=== PATIENT | female | born 1980 | race Caucasian/White ===

== ENCOUNTER 2025-02-17 06:05 | Day surgery (SDC) | payer MEDICAID, SELFPAY ==
[2025-02-17] VITALS (11 sets, daily range): BP systolic 103–137; BP diastolic 72–103; PULSE 92–103; RESP 16–18; TEMP 36.1–37.2; O2SAT 95–100; BMI 47.9
--- NOTE | 2025-02-17 06:44 | PRE.ANES_ITS ---
ASA Classification* ASA Classification ASA Classification: 2 Assessment & Plan Anesthesia* Anesthesia Assessment Anesthesia Assessment: Discussed sedation and/or anesthesia options, risks, benefits, and alternatives with patient/parents/legal guardian/POA. Questions invited. The patient/parents/legal guardian/POA seems to understand and agrees to proceed with anesthesia plan. Reviewed the physical assessment, medical history, allergy history and patient home medications list prior to surgery/procedure/anesthetic and documented any changes. Performed airway and anesthesia risk assessments. Anesthesia Type Anesthesia Type: General Anesthesia Focused Assessment* Temperature: 98.4 F Pulse Rate: 103 Blood Pressure: 137/103 Respiratory Rate: 16 Pulse Ox: 100 Airway Assessment Mouth opens: >3 cm Mallampati Score: II Labs Anesthesia Preop lab: CBC CHEMISTRY COAG Pre-Assessment Diagnosis/Proposed Procedure Planned Operative Procedure(s): (L) Excision Ganglionic Cyst, Ankle. Exploration/Repair of Peroneal Tendon, Ankle. Anesthesia History Anesthesia History - risk adjustment specialist: Anesthesia History - risk adjustment specialist Hx Hospitalization No 02/07/25 13:08 Any Problems With Anesthesia No 02/07/25 13:08 Cholinesterase deficiency No 02/07/25 13:08 You/Your Family Experience No 02/07/25 13:08 fever (hyperthermia) with Relationship Recent Exposure to Contagious No 02/17/25 06:30 Disease Does patient have nerve No 02/07/25 13:08 stimulator Patient instructed to have device shut off --Does patient have Pacemaker No 02/17/25 06:30 or ICD? When Was Last Pacemaker Check QUESTION #4 FULL TEXT: You/Your Family Experience fever (hyperthermia) with Anesthesia Last Oral Intake Last Oral intake: Last Oral Intake NPO since 01:30 02/17/25 06:30 Meds taken in AM with sips of No 02/17/25 06:30 water? Meds patient instructed to take am of surgery PONV PONV - risk adjustment specialist: PONV - risk adjustment specialist Female Yes 02/07/25 13:08 HX of Motion Sickness No 02/07/25 13:08 HX of N/V After Surgery No 02/07/25 13:08 Non-Smoker Yes 02/07/25 13:08 Duration of Surgery greater No 02/07/25 13:08 than 60 minutes Number of Risk Factors 2 02/07/25 13:08 PONV Score Moderate Risk 02/07/25 13:08 Height & Weight Height & Weight: Anesthesia: Height & Weight Height 5 ft 4 in 02/17/25 06:30 Weight: 126.6 kg 02/17/25 06:30 Body Mass Index (BMI) 47.9 02/17/25 06:30 Respiratory Assessment Respiratory Assessment - risk adjustment specialist: Respiratory Tract Infection Hx - risk adjustment specialist Hx Respiratory Tract Infection No 02/07/25 13:08 STOP Sleep Apnea STOP Sleep Apnea - risk adjustment specialist: STOP Sleep Apnea - risk adjustment specialist Hx Hypertension No 02/07/25 13:08 Hx Sleep Apnea No 02/07/25 13:08 CPAP BIPAP Do you snore loudly (louder No 02/07/25 13:08 than talking or can be heard Do you often feel tired/ No 02/07/25 13:08 fatigued/ sleepy during daytime? Has anyone observed you stop No 02/07/25 13:08 breathing during sleep? STOP Results Negative 02/07/25 13:08 QUESTION #5 FULL TEXT : Do you snore loudly (louder than talking or can be heard through closed doors)? Tobacco Use History Tobacco Use History - risk adjustment specialist: Tobacco Use History - risk adjustment specialist Tobacco Use Smoking Status Former smoker 02/07/25 13:08 Hx Tobacco Use No 02/07/25 13:08 Years Smoking 20 02/07/25 13:08 Packs Smoked per Day Smoking Cessation Date was Yes - quit smoking within 15 02/07/25 13:08 within the last 15 years years Hx Smoking Cessation Date Hx Smoking Cessation No 02/07/25 13:08 Counseling Hematologic Medial History Hematologic Hx - risk adjustment specialist: Hematologic Medical Hx - smoke chaser Hx of Blood Transfusion Yes 02/07/25 13:08 Hx of Transfusion in last 3 No 02/07/25 13:08 Months Date of Last Transfusion (if within last 3 months) Ever experience any problems No 02/07/25 13:08 with transfusion(s)? Specify any problems Hx of Preganancy in last 3 No 02/07/25 13:08 Months Nurse Filling Out Transfusion JZOLLINGE 02/07/25 13:08 & Questions: Date: 02/07/25 02/07/25 13:08 Time: 13:10 02/07/25 13:08 Patient unable to answer at this time (ie. confused, unrespo /Reproduction History /Reproductive History - risk adjustment specialist: /Reproductive Hx- risk adjustment specialist Hx Now No 02/07/25 13:08 Gestational Age (in weeks): EDC: Hx Hx Para Hx Section SAB No 02/07/25 13:08 Active Medications Active Medications: Current Medications Generic Name Dose Route Start Last Admin Trade Name Freq PRN Reason Stop Dose Admin Lactated Ringer's 1,000 mls @ 15 mls/hr 02/17/25 06:30 IV .Q48H ANGEL LUIS PFSH Medical History Alcohol use Dietary restriction History of hiatal hernia Heartburn Former smoker Smoker Home Medications ?Medication ?Instructions ?Recorded ?Last Taken ?Type NK 02/07/25 Unknown History Allergy/AdvReac Type Severity Reaction Status Date / Time No Known Allergies Allergy Verified 02/17/25 06:29 Surgical History Hx of hysterectomy Hx of cholecystectomy History of ankle surgery Hx of colonoscopy Hx of gastric bypass Social History Smoking Status: Former smoker Review of Systems (Anesthesia) ROS Narrative System reviewed and no additional complaints, except as documented.
[2025-02-17] MEDS: Lactated Ringers 1,000 ML 15 ML IV (06:49)
--- NOTE | 2025-02-17 07:30 | SYN_PTH ---
PATIENT: BROOKS CARRILOL LOC: [facility] – [place] U#:[id number] AGE/SX: 44/F ROOM: RE02/17/[address]: Dr. Alo Pradhan DPM : 1980 BED: DIS: 02/17/2025 SPEC #: [id number] RECD: 02/17/25 10:24 STATUS: KAYLA JEROME #: [id number] KAREL: 02/17/25 07:[address]: Alo Pradhan DEPT: SURGICAL PATHOLOGY RECD BY: Chaka Garcia Tissues: A - Synovial tissue of joint, NOS Procedures: Surgery Specimen Level IV HEADER OPERATION: Repair peroneal longus tendon, excision hypertrophy synovium PRE-OP DIAGNOSIS: Ganglion cyst TISSUE SUBMITTED: A- Synovial hypertrophy MICROSCOPIC DIAGNOSIS A. Synovium, excision: * Benign dense fibrocollagenous tissue MICROSCOPIC DESCRIPTION Slides are reviewed. GROSS DESCRIPTION A. Received in formalin labeled with the patient's name and date of . Designated as synovial hypertrophy is a 1.0 x 0.9 x 0.6 cm alva and rubbery tissue fragment. Sectioning reveals rubbery and fibrotic cut surfaces. Entirely submitted in 1 cassette. OH 02/17/2025 CPT:64050
[2025-02-17] MEDS: Bupiv/Epi 0.25% 30 ML Vial (07:51)
--- NOTE | 2025-02-17 08:54 | OP.PCM_ITS ---
Operative Report (Standard) Operative Information Date of Procedure: 02/17/25 Pre-Operative Diagnosis: ganglionic cyst/peroneal tendonopathy left Post-Operative Diagnosis: synovial hypertrophy/peroneus longus complete rupture with retraction, left Surgery/Procedure Performed: excision synovial hypertrophy/repair/grat peronesul longus tendon, left pilot safety inspector: No Type of Anesthesia: General RN Documented Start/Stop Times: Operation Date: 02/17/25 07:30 Case Time Into Pre-Op 02/17/25 06:21 Out of Pre-Op 02/17/25 07:27 Anesthesia Start 02/17/25 07:30 Into Room 02/17/25 07:30 Procedure Start 02/17/25 07:53 Procedure End 02/17/25 08:36 Anesthesia End 02/17/25 08:44 Out of Room 02/17/25 08:44 Procedure Start Time: 07:53 Procedure Stop Time: 08:36 Select all DRAINS/GRAFTS/IMPLANTS that apply: None Estimated Blood Loss: 5ml Specimen collected: Yes Description of specimen(s) removed: fibrous inflammatory tissue around tendon Description of surgery: pt placed on table in supine position, slight lateral with table tilted and legs protected and body bolstered safely. thigh tourniquet. elevated leg to exsanguinate. tourniquet inflated to 300mm/hg. foot prepped and draped in normal sterile manner. linear incision made over previous incisional scar. excpeted to see ganglion but instead ran into a lot of synovial hypertrophic tissue. fibrofatty and adhesive with lots of fiberwire. the tendons were difficult to dissect as they were basically contiguous with the peroneal tendon sheath and retinaculum. the peroneus brevis was isolate first and noted to be intact with fiberwire running repair. the tendon was diminutive but intact and scarred down to all surrounding tissue, it was free from any restrictive scar. the distal stum of the peroneus longus was identified just proximal to its turn under the cuboid. it was hypertrophic/thick with fiberwire present. may have previously been tenodesed to brevis. the proximal part of the tendon was noted about 4 cm above the retromalleolar groove and also noted to be thick and hypertrophic with fiberwire suture present. it was significantly intertwined with the surround hypertrophic tendon sheath and brevis tendon. It was freed from all surrounding adhesions. the scar/hypertophy was excised along the tendon sheath and retinaculum creating something that could be used to close over the tendons. the peroneus longus tendon parts were about 6 cm apart and could be closed to within about 2.5 cm by pulling the proximal portion down. the proximal portions thickness allowed a longitudinal centerline incision to be made and rotated/flapped down to cover the gap. 3.0 vicryl was used to repair the tendon end to end and side to side. the repair was solid and free to move independently of brevis and surrounding tissue. the retinaculum and sheath were repaired with 3.0 vicryl. the skin closed with 3.0nylon. DSD with posterior splint. tourn deflated, normal perfusion with controlled bleeding. Surgical Findings: peroneus longus tendon rupture with retraction/heavy synovial hypertrophy and scarring/adhesions Complications Complications: No Admit VTE Documentation VTE Mechan Device Prophylaxis: SCD's VTE Pharm Prophylaxis ordered?: No Reason prophylaxis not ordered: Treatment Not Indicated
--- NOTE | 2025-02-17 15:06 | PCM.POST.ANE ---
Anesthesia: Postop Eval I Current Vital Signs Temperature: 97 F Pulse Rate: 92 Blood Pressure: 105/86 Respiratory Rate: 18 Pulse Ox: 98 Oxygen Delivery Method: Room Air Assessment Airway patent: Yes Spontaneous unlabored respirations: Yes nausea: No Vomiting: No Anesthesia Complication: No Fluid Hydration Crystalloid volume administer (ml): 400 Total IV fluid infused: 400 Progress Note Anesthesia document: Postop Eval 1 completed: Yes
--- NOTE | 2025-02-17 15:11 | PCM.POSTANE2 ---
Anesthesia Postop Eval I Sum Postop Eval Completion status Anesthesia document: Postop Eval 1 completed: Yes Anesthesia Postop Eval I Summary Anesthesia Postop Eval I Summary: Anesthesia Postop Eval I: Assessment Summary Airway patent Yes 02/17/25 15:07 Spontaneous unlabored Yes 02/17/25 15:07 respirations Mental status nausea No 02/17/25 15:07 Vomiting No 02/17/25 15:07 Anesthesia Postop Eval I: Fluid Summary Crystalloid volume administer 400 02/17/25 15:07 (ml) Colloids volume administered ( ml) Blood Product volume administered (ml) Total IV fluid infused 400 02/17/25 15:07 Anesthesia Postop Eval I: Summary Notes Anesthesia Complication No 02/17/25 15:07 Anesthesia Complication Comment: Post-operative progress note Anesthesia: Postop Eval II Evaluation Mental status: Awake Pain Level: 1 nausea: No Vomiting: No
== END 2025-02-17 10:33 | disposition home or self-care (01) ==
LOC: SDC 06:08 → AC 06:09
PROVIDERS: Referring Provider Podiatrist Foot & Ankle Surgery; Visit Provider Podiatrist Foot & Ankle Surgery
PROC: (CPT 27650; principal; 2025-02-17 07:15)
DX: M67.262 Synovial hypertrophy, not elsewhere classified, left lower leg (principal); S86.312A Strain of muscle(s) and tendon(s) of peroneal muscle group at lower leg level, left leg, initial encounter; X58.XXXA Exposure to other specified factors, initial encounter; Z87.891 Personal history of nicotine dependence
CPT/HCPCS: 27658; 01470; 88305; J2405

== ENCOUNTER → 2025-03-10 | Outpatient (CLI) | payer MEDICAID, SELFPAY ==
[2025-03-17 10:07] LABS: QNTFERON TB Mitogen Value > 10.00 IU/mL (.); QNTFERON TB Nil Value 0.04 IU/mL (.); QNTFERON TB1+ Ag Value 0.08 IU/mL (.); QNTFERON TB2+ Ag Value 0.03 IU/mL (.); QNTIFERON TB Positive Criteria Negative (Negative)
== END | disposition home or self-care (01) ==
LOC: MTLAB 08:24
PROVIDERS: Referring Provider Physician Assistant; Visit Provider Physician Assistant
DX: L40.0 Psoriasis vulgaris (principal)
CPT/HCPCS: 36415; 86480